=== PATIENT | male | born 1965 | race Caucasian/White ===

== ENCOUNTER → 2017-10-02 10:56 | Outpatient (CLI) | payer MEDICARE, BC ==
[2016-05-13 16:54] VITALS: BMI 37.3
[~2017-10-02 10:56] MED LIST: ACETAMINOPHEN500 M1 PO; ASPIRIN 81 MG E81 MG PO; COUMADIN5 MG PO; COUMADIN6 MG PO; COUMADIN7.5 MG PO; FISH OIL 1,0001 CA1 PO; FISH OIL 1,2001 CAP PO; LISINOPRIL5 MG PO; MULTAQ400 MG PO; NORCO 10/325 TA1 TA1 PO; PRILOSEC20 MG PO; RENA-VITE TABL0.8 MG PO; RENVELA800 MG PO; TUMS500 MG PO
== END | disposition home or self-care (01) ==
LOC: D.RAD 10:56
DX: R10.30 Lower abdominal pain, unspecified (principal); R19.00 Intra-abdominal and pelvic swelling, mass and lump, unspecified site; N18.6 End stage renal disease

== ENCOUNTER 2018-01-22 10:14 | Outpatient (CLI) | payer MEDICARE, BC ==
[2016-05-13 16:54] VITALS: BMI 37.3
== END 2018-01-22 10:30 | disposition home or self-care (01) ==
LOC: D.CATH 10:14
DX: I25.10 Atherosclerotic heart disease of native coronary artery without angina pectoris (principal); Z01.810 Encounter for preprocedural cardiovascular examination; Z01.811 Encounter for preprocedural respiratory examination; Z01.812 Encounter for preprocedural laboratory examination; Z53.9 Procedure and treatment not carried out, unspecified reason

== ENCOUNTER 2020-06-25 17:23 | Inpatient (IN) | payer MEDICARE, BC ==
[~2020-06-25] VITALS: Ht 182.9 cm; Wt 127.0 kg
--- NOTE | ~2020-06-25 | HEMODYNAMI ---
PATIENT:RADHA ZEE MEDICAL RECORD: [id number] : 69 LOCATION:D. D.2118 ADMISSION DATE: 06/26/20 Generatedon:06/27/202015:55 Patient name: RADHA ZEE Patient #: [id number] SSN: DO B: 1965 Date of study: 06/27/2020 Page: Of Hemodynamic Procedure Report Patient Data Patient Demographics Procedure consent was obtained First Name: RADHA Gender: Male Last Name: SAADIA : 1965 Middle Initial: FAVIOLA Age: 55 year(s) Patient #: [id number] Race: Additional ID: [id number] Contact details Address: [address] [place] [address] State: [place] City: [place] Zip code: [address] Past Medical History Allergies Allergen Reaction Date Comments Reported Other allergy 06/27/2020 SOTOLOL Admission Admission Data Admission Date: 06/26/2020 Admission Time: 15:36 Admit Source: Other Room #: D.2118 Height (in.): 71.65 BSA: 2.45 (m2) Height (cm.): 182 BMI: 38.34 (kg/m2) Weight (lbs.): 279.99 Weight (kg.): 127 Lab Results Lab Result Date: 06/27/2020 Lab Result Time: 0:00 Biochemistry Name Units Result Min Max BUN mg/dl 70 --(----)-* 7 18 Creatinine mg/dl 12.9 --(----)-* 0.6 1.3 eGFR ml/min 4 *-(----)-- 90 120 NONAFRICAN CBC Name Units Result Min Max Hemoglobin g/dl 13.4 -*(----)-- 13.5 17.5 Procedure Procedure Types Cath Procedure Diagnostic Procedure LHC LHC w/Coronaries Sedation Charges Moderate Sedation up to 15 minutes Procedure Description Procedure Date Procedure Date: 06/27/2020 Procedure Start Time: 15:29 Procedure End Time: 15:44 Procedure Staff Name Function Markus Hernandez RN Nurse Edwin Mckinney MD Performing Physician Bhargavi Hills RT Scrub Agnieszka Berumen RT Monitor Anatoliy Bravo RN Nurse Gladys Arteaga RT Monitor Procedure Data Cath Procedure Fluoroscopy Diagnostic fluoroscopy Total fluoroscopy Time: 2.6 time: 2.6 min min Diagnostic fluoroscopy Total fluoroscopy dose: dose: 1036 mGy 1036 mGy Contrast Material Contrast Material Type Amount (ml) Isovue 300 62 Entry Location Entry Primary Successful Side Size Upsize Upsize Entry Closure Succes sful Closure Location (Fr) 1 (Fr) 2 (Fr) Remarks Device Remarks Femoral Right 5 Fr Exoseal artery Estimated blood loss: 5 ml Diagnostic catheters Device Type Used For End Catheter Placement MULTIPACK JL 4.0 5Fr Procedure catheter DIAGNOSTIC JL 5 5Fr Procedure catheter ([id number]) MULTIPACK 3DRC 5Fr Procedure catheter MULTIPACK Pigtail 5 Fr Procedure catheter Procedure Complications No complications Procedure Medications Medication Administration Route Dosage Oxygen etCO2 Nasal cannula 2 l/min 0.9% NaCl I.V. 100 ml/hr Heparin Flush Bag added to field 2 bags (1000units/500ml NS) Lidocaine 2% added to field 20 Fentanyl I.V. 50 mcg Versed I.V. 1 mg Versed I.V. 1 mg Fentanyl I.V. 50 mcg Hemodynamics Rest BSA: 2.45 (m2) HGB: 13.4 (g/dl) O2 Consumption: Estimated: 265.4 (ml/min) O2 Con sumption indexed: Estimated:108.33 (ml/min/m) Heart Rate: 42 (bpm) Pressure Samples Time Site Value (mmHg) Purpose Heart Use Rate(bpm) 15:39 LV 147/8,17 Snapshot 41 15:39 LV 128/6,21 Pullback 55 15:39 AO 128/67(86) Pullback 55 Gradients Valve Time Site 1 Site 2 Mean SEP/DFP Peak To Heart Use (mmHg) (sec/min) Peak Rate (mmHg) (bpm) Aortic 15:39 LV AO 9 12 0 55 128/6,21 128/67(86) Calculations Valve P-P Mean Valve Index Valve Source Name Gradient Area Flow (cm2) Aortic 0 9 0 9 Snapshots Pre Cath Intra NCS Post Cath Vital Signs Time Heart Resp SPO2 etCO2 NIBP (mmHg) Rhythm Pain Sedation Rate (ipm) (%) (mmHg) Status Level (bpm) 15:07:07 55 17 98 8.9 161/71(123) NSR 0 (11) 10(A) , No pain 15:11:29 49 17 100 16.4 138/72(118) NSR 0 (11) 10(A) , No pain 15:16:22 57 16 100 35.8 173/89(140) NSR 0 (11) 10(A) , No pain 15:20:54 61 16 95 0 154/68(119) NSR 0 (11) 10(A) , No pain 15:25:12 53 16 89 30.6 135/88(114) NSR 0 (11) 10(A) , No pain 15:30:16 43 16 100 37.4 146/62(120) NSR 0 (11) 9(A) , No pain 15:34:17 41 16 99 38.1 114/67(98) NSR 0 (11) 9(A) , No pain 15:39:29 84 18 98 36.6 117/65(103) NSR 0 (11) 9(A) , No pain 15:42:39 41 18 99 35.1 133/64(100) NSR 0 (11) 9(A) , No pain Medications Time Medication Route Dose Verified Delivered Reason Notes Eff ectiveness by by 15:17:15 Oxygen etCO2 2 Edwin Markus Per Nasal l/min Hank Hernandez RN physician cannula 15:17:31 0.9% NaCl I.V. 100 Edwin Markus Per ml/hr Hank Hernandez RN physician 15:17:48 Heparin Flush added 2 Edwin Markus used for Bag to bags Hank Hernandez cap coverer (1000units/500ml field NS) 15:17:59 Lidocaine 2% added 20ml Edwin Markus for local to vial Hank Hernandez RN anesthetic field 15:25:46 Fentanyl I.V. 50 Edwin Markus for velma Hernandez RN sedation 15:25:54 Versed I.V. 1 mg Edwin Markus for Hank Hernandez RN sedation 15:31:36 Versed I.V. 1 mg Edwin Markus for Hank Hernandez RN sedation 15:35:45 Fentanyl I.V. 50 Edwin Markus for mcg Hank Hernandez RN sedation Procedure Log Time Note 14:44:07 Admit Source: Other 14:45:23 Patient Height : 71.65 inches 14:45:27 Patient Weight : 279.99 lbs 14:46:02 Lab Result : eGFR NONAFRICAN 4 ml/min 14:46:02 Lab Result : Hemoglobin 13.4 g/dl 14:46:02 Lab Result : BUN 70 mg/dl 14:46:02 Lab Result : Creatinine 12.9 mg/dl 14:46:38 Procedure Status Urgent Heart Cath (IP). 14:46:59 Plan of Care:Hemodynamics will remain stable., Cardiac rhythm will remain stable., Comfort level will be maintained., Respiratory function will remain adequate., Patient/ family verbilizes understanding of procedure., Procedure tolerated without complication., Recovers from procedure without complications.. 14:48:29 Gladys Arteaga RT(R) sent for patient. Start room use. 14:49:37 Time tracking: Regular hours (M-F 7:00 - 5:00) 14:49:57 H&P Date Dictated: 06/27/2020 ER History on chart.. 14:54:23 Patient allergic to Other allergySOTOLOL 14:57:09 Patient received from Med II to CCL 2 Alert and oriented. Tansferred to table in Supine position. 14:57:11 Signed procedure consent form obtained from patient. 14:57:12 Correct patient and procedure confirmed by team. 14:57:12 Warm blankets applied, and jessica hugger turned on for patient comfort. 15:05:41 ECG and BP/O2 sat monitors applied to patient. 15:05:45 Vital chart was started 15:06:06 Rhythm: sinus bradycardia 15:06:08 Full Disclosure recording started 15:06:09 Baseline sample Acquired. 15:06:13 Pre-procedure instructions explained to patient. 15:06:14 Pre-op teaching completed and patient verbalized understanding. 15:06:17 Family in patients room. 15:06:18 Patient NPO since Midnight. 15:06:20 Is patient on blood thinner?Yes 15:06:29 PATIENT GIVEN LOVENOX 15:07:59 Patient diabetic? No. 15:08:02 Previous problem with sedation/anesthesia? No ? 15:08:03 Snore? Yes 15:08:05 Sleep apnea? Yes 15:08:09 Deviated septum? No 15:08:10 Opens mouth fully? Yes 15:08:12 Sticks out tongue? Yes 15:08:27 Airway obstruction? No ? 15:08:29 Dentures? No ? 15:08:39 Patient pain scale 0/10 ?. 15:08:43 IV patent on arrival in right hand with 0.9% NaCl at [facility]. 15:08:46 Lab results completed and on chart. 15:08:48 Right groin area was prepped with chlora-prep and draped in sterile fashion 15:08:49 Sharps counted by scrub and verified by R.N. 15:08:49 Alarms reviewed by R. N. 15:17:15 Oxygen 2 l/min etCO2 Nasal cannula was administered by Markus Hernandez RN; Per physician; Verbal order read back and verified. 15:17:31 0.9% NaCl 100 ml/hr I.V. was administered by Markus Hernandez RN; Per physician; Verbal order read back and verified. 15:17:48 Heparin Flush Bag (1000units/500ml NS) 2 bags added to field was administered by Markus Hernandez RN; used for procedure; Verbal order read back and verified. 15:17:59 Lidocaine 2% 20ml vial added to field was administered by Markus Hernandez RN; for local anesthetic; Verbal order read back and verified. 15:19:26 Use device set Femoral Dx 15:19:27 ACIST Syringe (14672) opened to sterile field. 15:19:28 Bag Decanter () opened to sterile field. 15:19:29 ACIST Manifold (87271) opened to sterile field. 15:19:29 ACIST Hand Control (11186) opened to sterile field. 15:19:30 Tegaderm 4 x 4 (1626W) opened to sterile field. 15:19:31 Medline Cath Pack ([id number]) opened to sterile field. 15:19:32 DIAGNOSTIC Multipack 5Fr catheter set (HY5945) opened to sterile field. 15:19:33 EMERALD Guide Wire (488-592) opened to sterile field. 15:19:33 SHEATH 5FR [place] (DTI086) opened to sterile field. 15:24:53 --------ALL STOP TIME OUT------ 15:24:54 Final Timeout: patient, procedure, and site verified with staff and physician. All members of the team are in agreement. 15:24:55 Right groin site verified by team. 15:24:58 Fire Safety Assessment: A--An alcohol-based skin anteseptic being used preoperatively., C--Open oxygen or nitrous oxide is being used., D--An ESU, laser, or fiber-optic light is being used. 15:25:02 Physical assessment completed. ASA score P 3 - A patient with severe systemic disease as per Edwin Mckinney MD. 15:25:06 5) <15 or on dialysis Very severe, or end stage kidney failure. 15:25:09 Maximum allowable contrast dose (3.7 X eGFR X 0.75)11 ml. 15:25:12 Sedation plan: IV Moderate Sedation Medication:Versed, Fentanyl 15:25:46 Fentanyl 50 mcg I.V. was administered by Markus Hernandez RN; for sedation; Verbal order read back and verified. 15::54 Versed 1 mg I.V. was administered by Markus Hernandez RN; for sedation; Verbal order read back and verified. 15:29:00 Procedure started. 15:29:27 Local anesthetic to right femoral artery with Lidocaine 2% by Edwin Mckinney MD.INITIAL ACCESS ONLY 15:30:35 A 5 Fr sheath was inserted into the Right Femoral artery 15:30:50 A MULTIPACK JL 4.0 5Fr catheter was advanced over the wire and used for Procedure. 15:31:36 Versed 1 mg I.V. was administered by Markus Hernandez RN; for sedation; Verbal order read back and verified. 15:32:31 Catheter exchanged over wire. 15:32:37 UNABLE TO ENGAGE 15:33:25 A DIAGNOSTIC JL 5 5Fr catheter ([id number]) was advanced over the wire and used for Procedure. 15:35:12 LCA angiography performed. 15:35:13 Catheter exchanged over wire. 15:35:32 A MULTIPACK 3DRC 5Fr catheter was advanced over the wire and used for Procedure. 15:35:45 Fentanyl 50 mcg I.V. was administered by Markus Hernandez RN; for sedation; Verbal order read back and verified. 15:36:52 RCA angiography performed. 15:36:55 Catheter exchanged over wire. 15:36:59 ACCDominant side:Right 15:37:17 A MULTIPACK Pigtail 5 Fr catheter was advanced over the wire and used for Procedure. 15:38:50 LV gram done using VIEIRA 15::53 Injector settings: Ml/sec: 5, Volume: 15, 15:39:30 EF : 50 % 15:39:55 LV hemodynamics recorded. 15:40:08 Catheter removed. 15:40:34 EXOSEAL 5Fr (EX500) opened to sterile field. 15:41:30 Sheath removed intact; hemostasis achieved with Exoseal to the Right Femoral artery. 15:41:33 Procedure ended.(Physican Out) 15:41:41 Contrast amount:Isovue 300 62ml. 15:41:49 Fluoroscopy time 02.60 minutes. 15:42:01 Fluoroscopy dose: 1036 mGy 15:42:01 Flurop Dose total: 1036 15:42:09 Dose Area Product 06960 mGy/cm. 15:42:12 Maximum allowable dose exceeded? Yes. 15:42:26 Sharps counted by scrub and verified by R.N. 15:42:36 Post-op/insertion site Right Femoral artery dressed using a 4 x 4 and Tegaderm. 15:43:03 Post-procedure physical assessment completed. ASA score P 3 - A patient with severe systemic disease as per Edwin Mckinney MD. 15:43:09 Post procedure rhythm: unchanged. 15:43:13 Estimated blood loss: 5 ml 15:43:15 Post procedure instruction explained to patient.Patient verbalizes understanding. 15:43:16 Patient needs reinforcement of post procedure teaching. 15:43:59 Procedure type changed to Cath procedure, Diagnostic procedure, LHC, [facility] w/Coronaries, Sedation Charges, Moderate Sedation up to 15 minutes 15:44:01 Procedure and supply charges have been captured, reviewed, submitted and are correct. 15:44:16 Procedure Complication : No complications 15:44:22 Vital chart was stopped 15:44:25 [facility] Findings: mild to moderate CAD (<70%) 15:44:29 See physician's report for complete and final results. 15:44:46 Report given to [facility]. 15:44:50 Patient transfered to [facility] with Bed. 15:44:53 Full Disclosure recording stopped 15:44:53 Procedure ended. 15:45:07 End room use (Document Last) Device Usage Item Name Manufacture Quantity Catalog Hospital Part Current Minimal L ot# / Number Charge Number Stock Stock Serial# Code ACIST Acist 1 07618 545209 453068 135643 20 Syringe Medical (17347) Systems Inc Bag Microtek 1 2001S 801932 73397 218554 5 Decanter Medical Inc. (2001S) ACIST Hand Acist 1 75436 310390 052371 256737 5 Control Medical (42014) Systems Inc ACIST Acist 1 03370 871950 139744 683280 5 Manifold Medical (01043) Systems Inc Tegaderm 4 3M 1 1626W 485168 545830 480270 5 x 4 (1626W) Medline Medline 1 [id number] 769571 62492 988405 5 Cath Pack ([id number]) DIAGNOSTIC Cardinal 1 SG8879 436521 52985 232532 30 Multipack Health 5Fr catheter set (HL3815) SHEATH 5FR Terumo 1 ULD838 701114 857733 146063 5 [place] (TOZ103) EMERALD Cardinal 1 502-455 131209 269713 466570 5 Guide Wire Health (502-455) MULTIPACK Cardinal 1 711870 5 JL 4.0 5Fr Health catheter DIAGNOSTIC Cardinal 1 [id number] 149218 129063 806085 5 JL 5 5Fr Health catheter (406621S) MULTIPACK Cardinal 1 600747 5 3DRC 5Fr Health catheter MULTIPACK Cardinal 1 601638 5 Pigtail 5 Health Fr catheter EXOSEAL 5Fr Cardinal 1 EX500 217912 425247 503375 10 (EX500) Health Signature Audit [place] Stage Time Signature Unsigned Intra-Procedure 06/27/2020 Agnieszka 3:46:59 PM Nannemann RT(R) (CV) Intra-Procedure 06/27/2020 Markus Hernandez 3:49:08 PM RN Intra-Procedure 06/27/2020 Edwin Mckinney MD 3:49:39 PM Intra-Procedure 06/27/2020 Agnieszka 3:54:34 PM Nannemann RT(R) (CV) Intra-Procedure 06/27/2020 Markus Hernandez 3:55:08 PM RN Intra-Procedure 06/27/2020 Edwin Mckinney MD 3:55:39 PM Signatures Nurse : Markus Hernandez RN Signature : Date : Time : Performing Physician : Signature : Edwin Mckinney MD Date : Time : Monitor : Agnieszka Signature : Nannemann RT Date : Time : Nurse : Anatoliy Lorigan Signature : RN Date : Time : Monitor : Gladys Arteaga Signature : RT Date : Time : [address] [place] [address]
[2020-06-25 18:53] LABS: BASOPHILS 0.5 % (0-2); EOSINOPHILS 1.4 % (0-7); HEMATOCRIT 42.1 % (42.0-54.0); IMMATURE GRANULOCYTES 1.6 % (0-5); LYMPHOCYTES 14.3 % (15-50); MCHC 33.3 g/dL (31.0-37.0); MCV 108.2 fL (80.0-100.0); MEAN PLATELET VOLUME 9.9 fL (7.4-10.4); MONOCYTES 10.8 % (2-11); NEUTROPHILS 71.4 % (40-80); PLATELET COUNT 196 10x3/uL (130-400); RBC 3.89 10x6/uL (4.20-6.10); RDW 13.4 % (11.5-14.5); WBC 9.3 10x3/uL (4.8-10.8)
[2020-06-25 19:04] LABS: APTT 35.7 SECONDS (22.8-39.4); INR 1.04 (0.85-1.17); PROTIME 13.6 SECONDS (11.6-15.0)
[2020-06-25 19:11] LABS: CALC OSMOLALITY 287 mosm/kg (275-300); CALCIUM 9.5 mg/dL (8.5-10.1); CARBON DIOXIDE 33.5 mmol/L (21.0-32.0); CHLORIDE - SERUM 95 mmol/L (98-107); GLUCOSE 108 mg/dL (74-106); POTASSIUM - SERUM 4.7 mmol/L (3.5-5.1); SODIUM 137 mmol/L (136-145); UREA NITROGEN 48 mg/dL (7-18); eGFR NON AFRICAN AMERICAN 6 mL/min (90-120)
[2020-06-25 19:29] LABS: ALBUMIN 3.8 g/dL (3.4-5.0); ALKALINE PHOSPHATASE 69 U/L (30-120); ALT (SGPT) 30 U/L (10-68); BILIRUBIN - TOTAL 0.34 mg/dL (0.2-1.3); CREATINE KINASE 117 UL (21-232); MAGNESIUM - SERUM 2.1 mg/dL (1.8-2.4); PROTEIN - SERUM 9.2 g/dL (6.4-8.2); TROPONIN-I 0.032 ng/mL (0.000-0.060)
[2020-06-25 21:14] LABS: TROPONIN-I 0.026 ng/mL (0.000-0.060)
[2020-06-25 23:00] VITALS: BP 134/89
[2020-06-26] VITALS (7 sets, daily range): BP systolic 100–144; BP diastolic 60–75; Ht 182.9 cm; Wt 127.0 kg
[2020-06-26 06:22] LABS: BASOPHILS 0.7 % (0-2); HEMATOCRIT 38.6 % (42.0-54.0); HEMOGLOBIN 12.6 g/dL (13.5-17.5); IMMATURE GRANULOCYTES 1.8 % (0-5); MCH 35.6 pg (26.0-34.0); MCHC 32.6 g/dL (31.0-37.0); MEAN PLATELET VOLUME 9.7 fL (7.4-10.4); MONOCYTES 11.8 % (2-11); NEUTROPHILS 66.7 % (40-80); PLATELET COUNT 181 10x3/uL (130-400); RBC 3.54 10x6/uL (4.20-6.10); RDW 13.5 % (11.5-14.5); WBC 6.8 10x3/uL (4.8-10.8)
[2020-06-26 07:03] LABS: CALC OSMOLALITY 285 mosm/kg (275-300); CALCIUM 8.6 mg/dL (8.5-10.1); CARBON DIOXIDE 32.8 mmol/L (21.0-32.0); CHLORIDE - SERUM 95 mmol/L (98-107); CREATININE - SERUM 11.7 mg/dL (0.6-1.3); GLUCOSE 90 mg/dL (74-106); POTASSIUM - SERUM 4.4 mmol/L (3.5-5.1); SODIUM 135 mmol/L (136-145); TROPONIN-I < 0.017 ng/mL (0.000-0.060); UREA NITROGEN 56 mg/dL (7-18); eGFR NON AFRICAN AMERICAN 5 mL/min (90-120)
[2020-06-26 17:18] LABS: BASOPHILS 0.5 % (0-2); EOSINOPHILS 1.3 % (0-7); HEMATOCRIT 39.4 % (42.0-54.0); HEMOGLOBIN 13.4 g/dL (13.5-17.5); IMMATURE GRANULOCYTES 1.3 % (0-5); LYMPHOCYTES 15.2 % (15-50); MCH 36.4 pg (26.0-34.0); MCV 107.1 fL (80.0-100.0); MEAN PLATELET VOLUME 10.1 fL (7.4-10.4); MONOCYTES 10.2 % (2-11); NEUTROPHILS 71.5 % (40-80); PLATELET COUNT 165 10x3/uL (130-400); RBC 3.68 10x6/uL (4.20-6.10); RDW 13.3 % (11.5-14.5); WBC 8.3 10x3/uL (4.8-10.8)
[2020-06-26 17:49] LABS: ANION GAP 18.1 mmol/L (8-16); CALCIUM 8.2 mg/dL (8.5-10.1); CARBON DIOXIDE 26.5 mmol/L (21.0-32.0); CHOL - HDL RATIO 5.4 ratio (2.3-4.9); CREATININE - SERUM 12.9 mg/dL (0.6-1.3); LDL-HDL RATIO 3.4 ratio (1.5-3.5); POTASSIUM - SERUM 4.6 mmol/L (3.5-5.1)
--- NOTE | 2020-06-26 19:12 | NUR ---
PT ALERT AND NEEDS SEEN TOO BED LOW AND LOCKED CALL LIGHT IN REACH
[2020-06-27] VITALS: BP 137/67
[2020-06-27 04:00] VITALS: BP 141/77
[2020-06-27 08:57] VITALS: BP 140/89
--- NOTE | 2020-06-27 09:47 | NUR ---
LEAVING FOR DIALYSIS BY BED. WILL CONT. PLAN OF CARE.
--- NOTE | 2020-06-27 13:51 | NUR ---
back from dialysis. b/p 144/80.
--- NOTE | 2020-06-27 15:25 | NUR ---
PRE-OPS GIVEN. TO CIRCULAR SHEAR OPERATOR BY BED.
--- NOTE | 2020-06-27 16:15 | NUR ---
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 B/P WNL. HR 38. [facility] NOTIFIED. STATES IT WILL GO BACK UP. RIGHT GROIN STABLE.
--- NOTE | 2020-06-27 18:03 | NUR ---
BED REST UP. GROIN STABLE. HR 44.
[2020-06-27 20:00] VITALS: BP 113/51
--- NOTE | 2020-06-28 07:24 | MORECARE ---
CASE MANAGEMENT DISCHARGE SUMMARY PATIENT: RAYMOND DUGAN UNIT: [id number] ADM DATE: 06/26/20 AGE: 55 : [birth year] SEX: M ROOM/BED: D.2118 AUTHOR: ROMINA GARDINER PHYSICIAN: REFERRING PHYSICIAN: SILKE RODRIGUEZ MD DATE OF SERVICE: 06/28/20 Discharge Plan Patient Name: RAYMOND DUGAN Facility: [facility]:[place] : 1965 Planned Disposition: Home Anticipated Discharge Date: Discharge Date: Expected LOS: Initial Reviewer: [email or web address] Initial Review Date: 06/28/2020 Generated: 06/28/20 8:23 am DCPIA - Discharge Planning Initial Assessment Updated by [email or web address]: Annetta Bryan on 06/28/20 7:23 am * Is the patient Alert and Oriented? Yes * How many steps to enter\exit or inside your home? 5/0 * PCP Dr. Ledbetter * Pharmacy [facility] on [address] * Preadmission Environment Home with Family * ADLs Independent * Equipment None * List name and contact numbers for known caregivers / representatives who currently or will assist patient after discharge: Antoni Paz - spouse - [phone] * Verbal permission to speak to the caregivers and representatives has been obtained from the patient. Yes * Community resources currently utilized Other * Please name any agencies selected above. Dialysis MWF [address] [facility] in [place] * Additional services required to return to the preadmission environment? No * Can the patient safely return to the preadmission environment? Yes * Has this patient been hospitalized within the prior 30 days at any hospital? No Coverage Notice Reviewer: [email or web address] Kim Galvan Notice Issued Date-Time: 06/26/2020 9:18 Notice Type: Medicare Outpatient Observation Notice Notice Delivered To: Patient Relationship to Patient: Self Chalk Extruding Machine Operator Name: Raymond Dugan Delivery Method: HAND - Hand Delivered Eleanor Days: Prior Verbal Notification: Recipient Understood Notice: Yes Recipient Signature: Yes Med Rec Note Co-signed by Attending: Coverage Notice Comment: PATTON signed provided to patient. Original to chart. Patient Name: RAYMOND DUGAN Page [phone] at 0724 All edits/amendments must be made on the electronic document DICTATION DATE: 06/28/20722 FLASH WELDING MACHINE OPERATOR: SANTHOSH 06/28/20722 RPT#: [id number] DC DATE: STATUS: ADM IN [facility] [address] [place] [address] END OF REPORT
--- NOTE | 2020-06-28 07:31 | MORECARE ---
CASE MANAGEMENT DISCHARGE SUMMARY PATIENT: RAYMOND DUGAN UNIT: [id number] ADM DATE: 06/26/20 AGE: 55 : 69 SEX: M ROOM/BED: D.4979 AUTHOR: ABDIFATAH,DOC PHYSICIAN: REFERRING PHYSICIAN: SILKE RODRIGUEZ MD DATE OF SERVICE: 06/28/20 Discharge Plan Patient Name: RAYMOND DUGAN Facility: [facility]:[place] : 1965 Planned Disposition: Home Anticipated Discharge Date: Discharge Date: Expected LOS: Initial Reviewer: [email or web address] Initial Review Date: 06/28/2020 Generated: 06/28/20 8:31 am Comments DCP- Discharge Planning Updated by [email or web address]: Annetta Bryan on 06/28/20 6:[address] Patient Name: RAYMOND DUGAN Admission Status: ER Accout number: [id number] Admission Date: 06-26-2020 : 1965 Admission Diagnosis:UNSTABLE ANGINA Attending: SILKE RODRIGUEZ Current LOS: 2 Anticipated DC Date: Planned Disposition: Home Primary Insurance: MEDICARE A & B DC PLAN: Home with Spouse ANTICIPATED DC NEEDS: No needs identified CM met with patient to complete initial dc planning assessment. CM educated patient on the CM role and verbal consent given by patient to complete assessment. CM verified patient's address, phone number, and emergency contact phone numbers. Patient lives at home with his spouse. At discharge patient plans to return and feels this is a safe discharge. States he dialyzes at [facility] on MWF at 0[address] and drives himself to dialysis. CM discussed availability of home health, rehab services, and medical equipment. Patient denied known discharge needs at this time. Transportation provider at discharge will be his mom . CM will continue to follow and will assist as needed with dc plans/needs. [employer] Consultant: Annetta Bryan DCPIA - Discharge Planning Initial Assessment Updated by [email or web address]: Annetta Bryan on 06/28/20 7:23 am * Is the patient Alert and Oriented? Yes * How many steps to enter\exit or inside your home? 5/0 * PCP Dr. Ledbetter * Pharmacy [facility] on [address] * Preadmission Environment Home with Family * ADLs Independent * Equipment None * List name and contact numbers for known caregivers / representatives who currently or will assist patient after discharge: Antoni Paz - spouse - [phone] * Verbal permission to speak to the caregivers and representatives has been obtained from the patient. Yes * Community resources currently utilized Other * Please name any agencies selected above. Dialysis MWF [address] [facility] in [place] * Additional services required to return to the preadmission environment? No * Can the patient safely return to the preadmission environment? Yes * Has this patient been hospitalized within the prior 30 days at any hospital? No Coverage Notice Reviewer: [email or web address] Kim Galvan Notice Issued Date-Time: 06/26/2020 9:18 Notice Type: Medicare Outpatient Observation Notice Notice Delivered To: Patient Relationship to Patient: Self Telephone Clerks Supervisor Name: Raymond Dugan Delivery Method: HAND - Hand Delivered Eleanor Days: Prior Verbal Notification: Recipient Understood Notice: Yes Recipient Signature: Yes Med Rec Note Co-signed by Attending: Coverage Notice Comment: PATTON signed provided to patient. Original to chart. Last DP export: 06/28/20 6:24 Patient Name: RAYMOND DUGAN Page [phone] at 0731 All edits/amendments must be made on the electronic document DICTATION DATE: 06/28/20730 CASINO WORKER: SANTHOSH 06/28/20730 RPT#: [id number] DC DATE: STATUS: ADM IN [facility] [address] [place] [address] END OF REPORT
--- NOTE | 2020-06-28 08:00 | NUR ---
HR [address] AVB CALLED TO [facility] FOR DR. BASURTO. ASYMTOMATIC. B/P WNL. NO NEW ORDERS.
[2020-06-28 09:17] VITALS: BP 116/73
--- NOTE | 2020-06-28 12:40 | NUR ---
Nutrition Follow-up: Pt unavailable at time of visit this AM. Chart reviewed. Noted pt had HD and cath yesterday. Diet: Renal No PO intake recorded Wt: 280# (06/26) No new labs Meds noted: Protonix, Tums, Renagel -RD following.
[2020-06-28 16:00] VITALS: BP 143/59
--- NOTE | 2020-06-28 19:16 | NUR ---
RECEIVED BEDSIDE REPORT. ROUNDING COMPLETE. PATIENT IS ALERT AND ORIENTED, RESTING COMFORTABLY IN BED. RESPIRATIONS ARE EVEN AND UNLABORED. NO S/S OF DISTRESS. NO C/O PAIN. NEEDS MET. CALL LIGHT WITHIN REACH. WILL CPOC.
[2020-06-28 20:00] VITALS: BP 151/71
[2020-06-29 04:00] VITALS: BP 122/54
[2020-06-29 07:39] LABS: BASOPHILS 0.4 % (0-2); EOSINOPHILS 1.9 % (0-7); HEMATOCRIT 36.3 % (42.0-54.0); HEMOGLOBIN 12.2 g/dL (13.5-17.5); IMMATURE GRANULOCYTES 1.5 % (0-5); LYMPHOCYTES 14.2 % (15-50); MCH 35.7 pg (26.0-34.0); MCHC 33.6 g/dL (31.0-37.0); MCV 106.1 fL (80.0-100.0); MEAN PLATELET VOLUME 10.5 fL (7.4-10.4); MONOCYTES 11.4 % (2-11); NEUTROPHILS 70.6 % (40-80); PLATELET COUNT 166 10x3/uL (130-400); RBC 3.42 10x6/uL (4.20-6.10); RDW 13.4 % (11.5-14.5); WBC 7.4 10x3/uL (4.8-10.8)
[2020-06-29 08:06] LABS: ALBUMIN 3.3 g/dL (3.4-5.0); ANION GAP 24.8 mmol/L (8-16); BILIRUBIN - TOTAL 0.32 mg/dL (0.2-1.3); CALCIUM 7.9 mg/dL (8.5-10.1); CARBON DIOXIDE 23.6 mmol/L (21.0-32.0); CREATININE - SERUM 14.5 mg/dL (0.6-1.3); MAGNESIUM - SERUM 2.1 mg/dL (1.8-2.4); POTASSIUM - SERUM 5.4 mmol/L (3.5-5.1); PROTEIN - SERUM 7.3 g/dL (6.4-8.2)
[2020-06-29 08:09] LABS: PHOSPHOROUS 10.3 mg/dL (2.5-4.9)
[2020-06-29 09:00] VITALS: BP 131/46
[2020-06-29 09:12] LABS: INR 1.19 (0.85-1.17); PROTIME 15.1 SECONDS (11.6-15.0)
[2020-06-29] MEDS ORDERED: LOW DOSE ASPIRI81 M1 PO (10:02)
[2020-06-29] MEDS ORDERED: NITROQUICK0.4 MG SL (10:03)
--- NOTE | 2020-06-29 11:30 | NUR ---
TO DIALYSIS BY BED.
--- NOTE | 2020-06-29 12:14 | MORECARE ---
CASE MANAGEMENT DISCHARGE SUMMARY PATIENT: RAYMOND ZEE UNIT: [id number] ADM DATE: 06/26/20 AGE: 55 : 69 SEX: M ROOM/BED: D.1080 AUTHOR: ABDIFATAH,DOC PHYSICIAN: REFERRING PHYSICIAN: SILKE RODRIGUEZ MD DATE OF SERVICE: 06/29/20 Discharge Plan Patient Name: RAYMOND ZEE Facility: [facility]:[place] : 1965 Planned Disposition: Home Anticipated Discharge Date: Discharge Date: Expected LOS: Initial Reviewer: [email or web address] Initial Review Date: 06/28/2020 Generated: 06/29/20 1:13 pm Comments DCP- Discharge Planning Updated by [email or web address]: Edith Galvan on 06/29/20 11:[address] Attempted to serve DC IMM, but patient is in HD. DCP- Discharge Planning Updated by [email or web address]: Annetta Bryan on 06/28/20 6:[address] Patient Name: RAYMOND ZEE Admission Status: ER Accout number: [id number] Admission Date: 06-26-2020 : 1965 Admission Diagnosis:UNSTABLE ANGINA Attending: SILKE RODRIGUEZ Current LOS: 2 Anticipated DC Date: Planned Disposition: Home Primary Insurance: MEDICARE A & B DC PLAN: Home with Spouse ANTICIPATED DC NEEDS: No needs identified CM met with patient to complete initial dc planning assessment. CM educated patient on the CM role and verbal consent given by patient to complete assessment. CM verified patient's address, phone number, and emergency contact phone numbers. Patient lives at home with his spouse. At discharge patient plans to return and feels this is a safe discharge. States he dialyzes at [facility] on MWF at 0600 and drives himself to dialysis. CM discussed availability of home health, rehab services, and medical equipment. Patient denied known discharge needs at this time. Transportation provider at discharge will be his mom . CM will continue to follow and will assist as needed with dc plans/needs. Pallet Assembler: Annetta Bryan DCPIA - Discharge Planning Initial Assessment Updated by [email or web address]: Annetta Bryan on 06/28/20 7:23 am * Is the patient Alert and Oriented? Yes * How many steps to enter\exit or inside your home? 5/0 * PCP Dr. Ledbetter * Pharmacy [facility] on [address] * Preadmission Environment Home with Family * ADLs Independent * Equipment None * List name and contact numbers for known caregivers / representatives who currently or will assist patient after discharge: Antoni Paz - [facility] - [phone] * Verbal permission to speak to the caregivers and representatives has been obtained from the patient. Yes * Community resources currently utilized Other * Please name any agencies selected above. Dialysis MWF [address] [facility] in [place] * Additional services required to return to the preadmission environment? No * Can the patient safely return to the preadmission environment? Yes * Has this patient been hospitalized within the prior 30 days at any hospital? No Coverage Notice Reviewer: [email or web address] Kim Galvan Notice Issued Date-Time: 06/26/2020 9:18 Notice Type: Medicare Outpatient Observation Notice Notice Delivered To: Patient Relationship to Patient: Self Hands Parter Name: Raymond Ritchie Delivery Method: HAND - Hand Delivered Eleanor Days: Prior Verbal Notification: Recipient Understood Notice: Yes Recipient Signature: Yes Med Rec Note Co-signed by Attending: Coverage Notice Comment: PATTON signed provided to patient. Original to chart. Last DP export: 06/28/20 6:31 Patient Name: RAYMOND ZEE Page [id number] at 1214 All edits/amendments must be made on the electronic document DICTATION DATE: 06/29/20 1213 TREE TRIMMING SUPERVISOR: SANTHOSH 06/29/20 1213 RPT#: [id number] DC DATE: STATUS: ADM IN [facility] [address] [place] [address] END OF REPORT
--- NOTE | 2020-06-29 16:13 | NUR ---
BACK FROM DIALYSIS. IV AND TELEMETRY DCD. DC PLANS GIVEN. UNDERSTANDING VOICED. ESCORTED TO CAR BY W/C.
--- NOTE | 2020-07-02 09:28 | MORECARE ---
CASE MANAGEMENT DISCHARGE SUMMARY PATIENT: RAYMOND DUGAN UNIT: [id number] ADM DATE: 06/26/20 AGE: 55 : 69 SEX: M ROOM/BED: D.1812 AUTHOR: ABDIFATAH,DOC PHYSICIAN: REFERRING PHYSICIAN: SILKE RODRIGUEZ MD DATE OF SERVICE: 07/02/20 Discharge Plan Patient Name: RAYMOND DUGAN Facility: [facility]:[place] : 1965 Planned Disposition: Home Anticipated Discharge Date: Discharge Date: 06/29/2020 Expected LOS: Initial Reviewer: [email or web address] Initial Review Date: 06/28/2020 Generated: 07/02/20 10:27 am Comments DCP- Discharge Planning Updated by [email or web address]: Edith Galvan on 06/29/20 11:[address] Attempted to serve DC IMM, but patient is in HD. DCP- Discharge Planning Updated by [id number]: Annetta Bryan on 06/28/20 6:[address] Patient Name: RAYMOND DUGAN Admission Status: ER Accout number: [id number] Admission Date: 06-26-2020 : 1965 Admission Diagnosis:UNSTABLE ANGINA Attending: SILKE RODRIGUEZ Current LOS: 2 Anticipated DC Date: Planned Disposition: Home Primary Insurance: MEDICARE A & B DC PLAN: Home with Spouse ANTICIPATED DC NEEDS: No needs identified CM met with patient to complete initial dc planning assessment. CM educated patient on the CM role and verbal consent given by patient to complete assessment. CM verified patient's address, phone number, and emergency contact phone numbers. Patient lives at home with his spouse. At discharge patient plans to return and feels this is a safe discharge. States he dialyzes at [facility] on MWF at 0600 and drives himself to dialysis. CM discussed availability of home health, rehab services, and medical equipment. Patient denied known discharge needs at this time. Transportation provider at discharge will be his mom . CM will continue to follow and will assist as needed with dc plans/needs. Draw Bench Operator: Annetta Bryan DCPIA - Discharge Planning Initial Assessment Updated by [email or web address]: Annetta Bryan on 06/28/20 7:23 am * Is the patient Alert and Oriented? Yes * How many steps to enter\exit or inside your home? 5/0 * PCP Dr. Ledbetter * Pharmacy [facility] [address] * Preadmission Environment Home with Family * ADLs Independent * Equipment None * List name and contact numbers for known caregivers / representatives who currently or will assist patient after discharge: Antoni Paz - [facility] - [phone] * Verbal permission to speak to the caregivers and representatives has been obtained from the patient. Yes * Community resources currently utilized Other * Please name any agencies selected above. Dialysis MWF [address] [facility] in [place] * Additional services required to return to the preadmission environment? No * Can the patient safely return to the preadmission environment? Yes * Has this patient been hospitalized within the prior 30 days at any hospital? No Coverage Notice Reviewer: [email or web address] Kim Galvan Notice Issued Date-Time: 06/26/2020 9:18 Notice Type: Medicare Outpatient Observation Notice Notice Delivered To: Patient Relationship to Patient: Self Die Inspector Name: Raymond Dugan Delivery Method: HAND - Hand Delivered Eleanor Days: Prior Verbal Notification: Recipient Understood Notice: Yes Recipient Signature: Yes Med Rec Note Co-signed by Attending: Coverage Notice Comment: PATTON signed provided to patient. Original to chart. Last DP export: 06/29/20 11:14 Patient Name: RAYMOND DUGAN Page [id number] at 0928 All edits/amendments must be made on the electronic document DICTATION DATE: 07/02/20926 SIMULATION TECH: SANTHOSH 07/02/20926 RPT#: [id number] DC DATE:06/29/20 STATUS: DIS IN [facility] [address] [place] [address] END OF REPORT
== END 2020-06-29 16:14 | disposition home or self-care (01) | DRG 286 ==
LOC: D.ER 17:23 → D.EDHOLD 21:11 → OBSVTIME 21:11 → D.M2 21:11
PROVIDERS: Emergency Medicine; Family Medicine; Internal Medicine Cardiovascular Disease; Internal Medicine Interventional Cardiology; ADMIT Family Medicine; ATTEND Family Medicine
PROC: B2151ZZ Fluoroscopy of Left Heart using Low Osmolar Contrast (ICD-10-PCS; 2020-06-27)
PROC: 4A023N7 Measurement of Cardiac Sampling and Pressure, Left Heart, Percutaneous Approach (ICD-10-PCS; 2020-06-27)
PROC: 5A1D70Z Performance of Urinary Filtration, Intermittent, Less than 6 Hours Per Day (ICD-10-PCS; 2020-06-27)
PROC: B2111ZZ Fluoroscopy of Multiple Coronary Arteries using Low Osmolar Contrast (ICD-10-PCS; principal; 2020-06-27 15:30)
DX: I25.110 Atherosclerotic heart disease of native coronary artery with unstable angina pectoris (principal); N18.6 End stage renal disease; I12.0 Hypertensive chronic kidney disease with stage 5 chronic kidney disease or end stage renal disease; I44.0 Atrioventricular block, first degree; I48.0 Paroxysmal atrial fibrillation